=== PATIENT | male | born 1960 | race Caucasian/White ===

== ENCOUNTER 2019-04-07 00:45 | Inpatient (IN) | payer MEDICARE, OTHER ==
[~2019-04-07] VITALS: Ht 185.4 cm; Wt 103.4 kg
[2019-04-07] MEDS ORDERED: NITROGLYCERIN 0.4 MG/TAB BOTTLE SL ONE (01:00)
[2019-04-07] MEDS ORDERED: IV NORMAL SALINE 500 ML BAG IV ONE (01:00)
[2019-04-07] MEDS ORDERED: FURO-151 PO (01:03)
[2019-04-07] MEDS ORDERED: METO-356 PO (01:03)
[2019-04-07] MEDS ORDERED: DABI150C PO (01:03)
[2019-04-07] MEDS ORDERED: SPIR25TA6 PO (01:04)
[2019-04-07] MEDS ORDERED: LISI-607 PO (01:04)
[2019-04-07] MEDS ORDERED: SIMV20TA2 PO (01:06)
[2019-04-07] MEDS ORDERED: DIGO125T PO (01:06)
[2019-04-07] MEDS ORDERED: POTA10TA15 PO (01:07)
[2019-04-07 01:25] LABS: BASOPHILS # (AUTO) 0.1 K/uL (0.0-8.0); BASOPHILS % (AUTO) 0.8 % (0.0-2.0); EOSINOPHILS # (AUTO) 0.1 K/uL (0.0-0.7); HEMATOCRIT 32.8 % (36.7-47.1); HEMOGLOBIN 11.5 g/dL (12.5-16.3); LYMPHOCYTES # (AUTO) 1.3 K/uL (20.0-40.0); LYMPHOCYTES % (AUTO) 12.6 % (20.5-51.5); MEAN CORPUSCULAR HEMOGLOBIN 33.3 uug (23.8-33.4); MEAN CORPUSCULAR HGB CONC 35 g/dL (32.5-36.3); MEAN CORPUSCULAR VOLUME 94.6 fL (73.0-96.2); MONOCYTES # (AUTO) 0.6 K/uL (2.0-10.0); MONOCYTES % (AUTO) 6.2 % (0.0-11.0); NEUTROPHILS % (AUTO) 79.4 % (38.5-71.5); PLATELET COUNT (AUTO) 119 K/uL (152-348); RED BLOOD CELL COUNT(AUTO) 3.47 MIL/uL (4.06-5.63); WHITE BLOOD COUNT (AUTO) 10.1 K/uL (3.6-10.2)
[2019-04-07 01:27] LABS: CREATININE 1.2 mg/dL (0.6-1.3); POTASSIUM 4.1 mmol/L (3.5-5.1)
[2019-04-07 01:43] LABS: BILIRUBIN,DIRECT 0.1 mg/dL (0.0-0.2); BILIRUBIN,TOTAL 0.4 mg/dL (0.2-1.0); TOTAL PROTEIN, SERUM 7.4 g/dL (6.4-8.2)
[2019-04-07] MEDS ORDERED: FUROSEMIDE 20 MG/2 ML VIAL IV ONE (02:00)
[2019-04-07] MEDS ORDERED: FUROSEMIDE 40 MG/4 ML VIAL ONE (02:10)
[2019-04-07 02:55] VITALS: BP 121/71
[2019-04-07] MEDS ORDERED: MORPHINE SULFATE 2 MG/1 ML DISP.SYRIN IV PRN (03:45)
[2019-04-07] MEDS ORDERED: ZOLPIDEM 5 MG TABLET PO PRN (03:45)
[2019-04-07] MEDS ORDERED: ACETAMINOPHEN 325 MG TABLET PO PRN (03:45)
[2019-04-07] MEDS ORDERED: ONDANSETRON 4 MG/2 ML VIAL IV PRN (03:45)
[2019-04-07 04:29] VITALS: BP 126/78
[2019-04-07] MEDS: NITROGLYCERIN OINT 1 GM PACKET TP SCH ×2 (06:17→12:00)
[2019-04-07] MEDS ORDERED: PANTOPRAZOLE SODIUM 40 MG TABLET.DR PO SCH (07:00)
[2019-04-07 07:03] LABS: BASOPHILS % (AUTO) 0.6 % (0.0-2.0); EOSINOPHILS # (AUTO) 0.1 K/uL (0.0-0.7); EOSINOPHILS % (AUTO) 0.9 % (0.0-7.0); HEMATOCRIT 31.4 % (36.7-47.1); HEMOGLOBIN 10.9 g/dL (12.5-16.3); LYMPHOCYTES # (AUTO) 1.1 K/uL (20.0-40.0); LYMPHOCYTES % (AUTO) 16.1 % (20.5-51.5); MEAN CORPUSCULAR HEMOGLOBIN 32.7 uug (23.8-33.4); MEAN CORPUSCULAR HGB CONC 35 g/dL (32.5-36.3); MEAN CORPUSCULAR VOLUME 93.7 fL (73.0-96.2); MONOCYTES # (AUTO) 0.4 K/uL (2.0-10.0); MONOCYTES % (AUTO) 6.1 % (0.0-11.0); NEUTROPHILS # (AUTO) 5.1 K/uL (1.8-8.9); NEUTROPHILS % (AUTO) 76.3 % (38.5-71.5); PLATELET COUNT (AUTO) 103 K/uL (152-348); RED BLOOD CELL COUNT(AUTO) 3.35 MIL/uL (4.06-5.63); WHITE BLOOD COUNT (AUTO) 6.7 K/uL (3.6-10.2)
[2019-04-07 07:13] LABS: MAGNESIUM 1.9 mg/dL (1.8-2.4); PHOSPHOROUS 3.5 mg/dL (2.5-4.9); POTASSIUM 3.7 mmol/L (3.5-5.1)
[2019-04-07] MEDS ORDERED: METOPROLOL TARTRATE 25 MG TABLET PO SCH ×2 (09:00)
[2019-04-07] MEDS ORDERED: ASPIRIN EC 81 MG TABLET.DR PO SCH (09:00)
[2019-04-07] MEDS ORDERED: ENOXAPARIN SODIUM 100 MG/ML DISP.SYRIN SQ SCH (09:00)
[2019-04-07 11:20] VITALS: BP 113/53
[2019-04-07 15:16] VITALS: BP 104/54
[2019-04-07] MEDS ORDERED: ATOR40TA PO (16:50)
[2019-04-07] MEDS ORDERED: ATORVASTATIN 40 MG TABLET PO SCH (21:00)
== END 2019-04-07 17:15 | disposition home or self-care (01) | DRG 302 ==
LOC: ER 00:47 → TELE3 02:27
PROVIDERS: ADMIT Nurse Practitioner Acute Care; ATTEND Internal Medicine
DX: I25.119 Atherosclerotic heart disease of native coronary artery with unspecified angina pectoris (principal); N17.0 Acute kidney failure with tubular necrosis; I50.22 Chronic systolic (congestive) heart failure; I42.8 Other cardiomyopathies; Z96.652 Presence of left artificial knee joint; Z95.810 Presence of automatic (implantable) cardiac defibrillator; E78.5 Hyperlipidemia, unspecified; E66.9 Obesity, unspecified; Z68.30 Body mass index [BMI] 30.0-30.9, adult; I48.0 Paroxysmal atrial fibrillation; D64.9 Anemia, unspecified; Z91.14 Patient's other noncompliance with medication regimen
CPT/HCPCS: 36415; 70030-TC; 71045; 83735; 84100; 85025; 85730; 93005; 93307; A4663; G0378; J1650; J1940

== ENCOUNTER 2023-03-25 11:57 | Inpatient (IN) | payer MEDICARE, OTHER ==
[~2023-03-25] VITALS: Ht 185.4 cm; Wt 106.6 kg
[~2023-03-25 11:57] MED LIST: ATOR40TA PO; DABI150C PO; DIGO125T PO; FURO-151 PO; LISI-782 PO; METO-356 PO; POTA10TA15 PO; SPIR25TA6 PO
--- NOTE | 2023-03-25 12:12 | NUR ---
Pt seen by MD for bedside eval. Safety measures in place. Will continue to monitor.
[2023-03-25 12:21] LABS: HEMATOCRIT 37.6 % (36.7-47.1); MEAN CORPUSCULAR HEMOGLOBIN 31.9 uug (23.8-33.4); MEAN CORPUSCULAR VOLUME 91.5 fL (73.0-96.2); PLATELET COUNT (AUTO) 126 K/uL (152-348)
[2023-03-25] MEDS ORDERED: SACU1TAB PO (12:22)
[2023-03-25 12:37] LABS: BILIRUBIN,TOTAL 0.5 mg/dL (0.2-1.0); CREATININE 1.2 mg/dL (0.6-1.3); PHOSPHOROUS 2.2 mg/dL (2.5-4.9); POTASSIUM 3.1 mmol/L (3.5-5.1); TOTAL PROTEIN, SERUM 7.9 g/dL (6.4-8.2)
--- NOTE | 2023-03-25 12:43 | NUR ---
Received call from Mario from lab that pt's lactic acid level is 2.1.
[2023-03-25] MEDS ORDERED: ACETAMINOPHEN 325 MG TABLET PO ONE (13:15)
[2023-03-25] MEDS ORDERED: FUROSEMIDE 40 MG/4 ML VIAL IV ONE (13:15)
[2023-03-25] MEDS ORDERED: NEUTRA PHOS PACKET PO ONE ×2 (13:15→16:30)
[2023-03-25] MEDS ORDERED: FUROSEMIDE 40 MG/4 ML VIAL ONE (13:16)
[2023-03-25] MEDS ORDERED: POTASSIUM CHLORIDE 200 ML ONE (13:16)
[2023-03-25] MEDS ORDERED: ACETAMINOPHEN 325 MG TABLET PO PRN (13:30)
[2023-03-25] MEDS ORDERED: MAGNESIUM HYDROXIDE 30 ML LIQUID UDC PO PRN (13:30)
[2023-03-25] MEDS ORDERED: REMEDY ESSENTIAL ZINC PASTE 113 GM TP PRN (13:30)
[2023-03-25] MEDS ORDERED: ONDANSETRON 4 MG/2 ML VIAL IV PRN (13:30)
[2023-03-25] MEDS: POTASSIUM CHLORIDE 50 ML IV SCH ×4 (13:44→16:52)
--- NOTE | 2023-03-25 15:20 | NUR ---
Gave report to Bipin (RN).
--- NOTE | 2023-03-25 15:50 | NUR ---
Pt admitted to [facility] safely and in stable condition. RN aware of pt. All belongings are with patient.
[2023-03-25 17:08] VITALS: BP 122/85; TEMP 98.6; O2SAT 97
--- NOTE | 2023-03-25 18:03 | NUR ---
Patient is alert, oriented x4, no sob, respirations are even nonlabored, skin warm and dry to touch, no edema noted to lower extremities. ambulatory self care. no distress noted at this time.
[2023-03-25] MEDS: METOPROLOL SUCCINATE XL 50 MG TAB.SR.24H PO SCH (18:08)
[2023-03-25 20:00] VITALS: BP 106/64; TEMP 97.8; O2SAT 96
[2023-03-25] MEDS: DABIGATRAN ETEXILATE MESYLATE 75 MG CAPSULE PO SCH (20:29)
[2023-03-26] VITALS: BP 102/69; TEMP 98.3; O2SAT 96
[2023-03-26 04:00] VITALS: BP 116/77; TEMP 98.3; O2SAT 98
--- NOTE | 2023-03-26 06:18 | NUR ---
PATIENT ASLEEP. SLEPT WELL THROUGHOUT THE NIGHT. ON TELE V-PACING. VS WNL. CALL LIGHT IN REACH.
[2023-03-26 06:59] LABS: HEMATOCRIT 32.5 % (36.7-47.1); MEAN CORPUSCULAR HEMOGLOBIN 32.3 uug (23.8-33.4); MEAN CORPUSCULAR VOLUME 91.3 fL (73.0-96.2); PLATELET COUNT (AUTO) 100 K/uL (152-348)
[2023-03-26 07:27] LABS: CREATININE 0.9 mg/dL (0.6-1.3); MAGNESIUM 1.9 mg/dL (1.8-2.4); PHOSPHOROUS 3.3 mg/dL (2.5-4.9); POTASSIUM 3.1 mmol/L (3.5-5.1)
--- NOTE | 2023-03-26 07:45 | NUR ---
RECEIVED PATIENT IN BED AWAKE ALERT AND ORIENTED DENIES PAIN OR DISCOMFORTS AT THIS TIME ON ROOM AIR WITH NO SHORTNESS OF BREATH TELE IS V PACING.CALL LIGHT AND PERSONAL BELONGINGS ARE WITHIN EASY REACH AT THIS TIME WILL CONTINUE TO OBSERVE.
[2023-03-26] MEDS: METOPROLOL SUCCINATE XL 50 MG TAB.SR.24H PO SCH (08:52)
[2023-03-26] MEDS: DABIGATRAN ETEXILATE MESYLATE 75 MG CAPSULE PO SCH (08:59)
[2023-03-26] MEDS ORDERED: SACUBITRIL/VALSARTAN 24 MG-26 TABLET PO SCH (09:00)
--- NOTE | 2023-03-26 09:49 | NUR ---
POTASSIUM LEVEL IS 3.[address] STRONG WITH NEW ORDERS AND NOTED.
[2023-03-26] MEDS ORDERED: SPIRONOLACTONE 25 MG TABLET PO SCH (10:00)
[2023-03-26] MEDS: POTASSIUM CHLORIDE 20 MEQ TAB.PRT.SR PO SCH ×3 (10:52→13:46)
[2023-03-26 11:50] VITALS: BP 112/73; TEMP 98.3; O2SAT 95
--- NOTE | 2023-03-26 12:15 | NUR ---
PATIENT SEEN BY DR NICOLÁS PRESSLEY WITH ORDER TO DISCHARGE HOME TODAY PATIENT AWARE.
[2023-03-26] MEDS ORDERED: EMPA10TA PO (12:16)
[2023-03-26] MEDS ORDERED: DAPA10TA PO (12:16)
--- NOTE | 2023-03-26 15:00 | NUR ---
PATIENT DISCHARGED STATED THAT HIS CAR IS IN THE [address]ARKING LOT AND HE IS ABLE TO DRIVE HIMSELF HOME DISCHARGE INSTRUCTIONS GIVEN PATIENT REMINDED TO POLICY SERVICE COORDINATOR HIS NEW MEDICATION AT HIS [facility] AND HE EXPRESSED UNDERSTANDING.DISCHARGE IN SATISFACTORY/STABLE CONDITION.
== END 2023-03-26 15:00 | disposition home or self-care (01) | DRG 291 ==
LOC: ER 11:57 → TELE3 15:20
PROVIDERS: ADMIT Nurse Practitioner Acute Care; ATTEND Nurse Practitioner Acute Care
DX: I11.0 Hypertensive heart disease with heart failure (principal); I50.43 Acute on chronic combined systolic (congestive) and diastolic (congestive) heart failure; E87.20 Acidosis, unspecified; D68.59 Other primary thrombophilia; T50.1X6A Underdosing of loop [high-ceiling] diuretics, initial encounter; Z91.138 Patient's unintentional underdosing of medication regimen for other reason; Y92.89 Other specified places as the place of occurrence of the external cause; I25.10 Atherosclerotic heart disease of native coronary artery without angina pectoris; E78.5 Hyperlipidemia, unspecified; I42.8 Other cardiomyopathies; Z95.810 Presence of automatic (implantable) cardiac defibrillator; Z79.02 Long term (current) use of antithrombotics/antiplatelets; E87.6 Hypokalemia; R42 Dizziness and giddiness; Z79.899 Other long term (current) drug therapy; I48.0 Paroxysmal atrial fibrillation; E66.9 Obesity, unspecified; Z68.31 Body mass index [BMI] 31.0-31.9, adult; R09.89 Other specified symptoms and signs involving the circulatory and respiratory systems
CPT/HCPCS: 36415; 70450; 71045; 83605; 83735; 84100; 84484; 85025; 85730; 93005; 93307; A4663; G0378; J1940; J3480

== ENCOUNTER 2023-11-27 10:26 | Emergency (ER) | payer MEDICARE, OTHER ==
[~2023-11-27] VITALS: Ht 185.4 cm; Wt 102.1 kg
[~2023-11-27 10:26] MED LIST changes: -ATOR40TA PO; +DAPA10TA PO; -DIGO125T PO; +EMPA10TA PO; -LISI-782 PO; -POTA10TA15 PO; +SACU1TAB PO
[2023-11-27 10:38] VITALS: O2SAT 97
== END 2023-11-27 11:14 | disposition home or self-care (01) ==
LOC: ER 10:28
DX: T83.038A Leakage of other urinary catheter, initial encounter (principal); I50.9 Heart failure, unspecified; Z79.899 Other long term (current) drug therapy; Y92.89 Other specified places as the place of occurrence of the external cause
CPT/HCPCS: A4606; A4663